=== PATIENT | male | born 1975 ===

== ENCOUNTER 2018-08-01 15:51 | Emergency (ER) | payer SELFPAY ==
--- NOTE | 2018-08-01 16:07 | NUR ---
CALLED NO ANSWER.
--- NOTE | 2018-08-01 16:17 | NUR ---
CALLED NO ANSWER.
== END 2018-08-01 16:45 | disposition left against medical advice (07) ==
LOC: ED 16:41
DX: Z53.21 Procedure and treatment not carried out due to patient leaving prior to being seen by health care provider (principal)